=== PATIENT | female | born 1950 | race Caucasian/White ===

== ENCOUNTER → 2017-01-01 | Outpatient (CLI) | payer OTHER ==
[~2017-01-01] MED LIST: ASPIR 8181 MG PO; CALTRATE-600 D600 MG PO; COMPAZINE10 MG PO; KLOR-CON M2020 ME1 PO; LEVAQUIN DPS500 MG PO; MAG-OX400 MG PO; THERA1 EACH PO; VITAMIN D35000 UNI1 PO
== END | disposition home or self-care (01) ==
LOC: RAD.S 12:30
DX: C90.02 Multiple myeloma in relapse (principal); J98.4 Other disorders of lung

== ENCOUNTER → 2017-02-11 | Outpatient (CLI) | payer OTHER | END | disposition home or self-care (01) | LOC: RAD.S 13:53 | DX: C90.02 Multiple myeloma in relapse (principal) ==